=== PATIENT | female | born 1960 | race Asian ===

== ENCOUNTER 2022-01-30 04:06 | Emergency (ER) | payer BC, OTHER ==
[~2022-01-30] VITALS: Ht 152.4 cm; Wt 70.8 kg
--- NOTE | 2022-01-30 04:16 | NUR ---
[id number]. TO ER BED 1. AAOX4. NOT IN RESP DISTRESS. BROUGHT IN FOR NOSEBLEED THAT STARTED EARLIER THIS EVENING. PT REPORTS A PROCEDURE THAT WAS DONE ON FRIDAY. SPOKE WITH RAFA AND SHE HAD A BALLOON SINUS DILATION. BLEEDING IS MINIMAL. NOSE CLAMP PLACED. MD WAS AT THE BEDSIDE. AWAITING FOR ORDERS
--- NOTE | 2022-01-30 04:19 | NUR ---
DAUGHTER [phone]
--- NOTE | 2022-01-30 04:19 | NUR ---
SO ELY BREATH FREE AND [facility] - [phone]
[2022-01-30] MEDS ORDERED: TRANEXAMIC ACID 1,000 MG/10 ML VIAL IR ONE (05:00)
[2022-01-30] MEDS ORDERED: TRANEXAMIC ACID 1,000 MG/10 ML VIAL ONE (05:02)
--- NOTE | 2022-01-30 05:11 | NUR ---
CALLED [facility]. UNBALE TO PAGE AN ONCALL . DR TOM MADE AWARE
[2022-01-30 05:23] VITALS: BP 165/90
--- NOTE | 2022-01-30 05:23 | NUR ---
Patient discharged to home in stable condition. Written and verbal after care instructions given. Patient verbalizes understanding of instruction.
== END 2022-01-30 05:24 | disposition home or self-care (01) ==
LOC: ER 04:06
DX: R04.0 Epistaxis (principal); Z88.0 Allergy status to penicillin; Z85.22 Personal history of malignant neoplasm of nasal cavities, middle ear, and accessory sinuses